=== PATIENT | female | born 1940 | race Two or more races ===

== ENCOUNTER 2021-12-26 04:16 | Day surgery (SDC) | payer OTHER ==
[2021-12-21 09:39] VITALS: BMI 26.6
[2021-12-26] MEDS ORDERED: mitoMYcin 40 MG/50 ML DISP.SYRIN (FOR OR USE) IC ONE (12:45)
[2021-12-26] MEDS ORDERED: MIDAZOLAM HCL 2 MG/2 ML SINGLE DOSE VIAL ONE (13:01)
[2021-12-26] MEDS ORDERED: PROPOFOL 20 ML ONE (13:02)
[2021-12-26] MEDS ORDERED: SUCCINYLCHOLINE CHLORIDE 200 MG/10 ML SYRINGE ONE (13:02)
[2021-12-26] MEDS ORDERED: ONDANSETRON 4 MG/2 ML VIAL IVPUSH PRN (13:53)
[2021-12-26] MEDS ORDERED: oxyCODONE HCL 5 MG TABLET PO PRN (13:53)
[2021-12-26] MEDS ORDERED: PROMETHAZINE HCL 25 MG/1 ML VIAL IVPUSH PRN (13:53)
[2021-12-26] MEDS ORDERED: ACETAMINOPHEN 1000 MG/100 ML BAG IVPB ONE ×2 (13:55→15:05)
[2021-12-26] MEDS ORDERED: IBUPROFEN 800 MG/8 ML IJ IVPB SCH (14:00)
[2021-12-26] MEDS ORDERED: LACTATED RINGERS SOLUTION 1,000 ML IV SCH (14:00)
[2021-12-26] MEDS ORDERED: DEXTROSE 5%-0.45% SALINE 1,000 ML IV SCH (14:00)
[2021-12-26] MEDS ORDERED: ceFAZolin SODIUM 1 GM VIAL IVPB ONE (14:05)
[2021-12-26] MEDS ORDERED: ACETAMINOPHEN INJECTION 100 ML IVPB ONE (15:01)
[2021-12-26 17:10] VITALS: RESP 18
[2021-12-26 17:16] VITALS: BP 141/67; PULSE 82; TEMP 97.7
== END 2021-12-26 17:00 | disposition home or self-care (01) ==
LOC: JASU-SURG 04:16
PROVIDERS: ATTEND Urology
PROC: 0TBB8ZX Excision of Bladder, Via Natural or Artificial Opening Endoscopic, Diagnostic (ICD-10-PCS; principal; 2021-12-26 14:13)
DX: C67.9 Malignant neoplasm of bladder, unspecified (principal)
CPT/HCPCS: 88307-TC; 94760